=== PATIENT | female | born 1980 | race African-American/Black ===

== ENCOUNTER 2018-07-13 19:05 | Emergency (ER) | payer OTHER ==
[~2018-07-13] VITALS: Ht 157.5 cm; Wt 83.9 kg
[2018-07-13] MEDS ORDERED: Ketorolac 30mg Inj IV ONE (19:45)
--- NOTE | 2018-07-13 19:46 | Emergency Room Report ---
History of Present Illness General Chief Complaint: Flu Like Symptoms Source: Patient, Medical Record Present Illness HPI 37-year-old female patient presents ER complaining of flulike symptoms for the past day. Patient reports that she is been experiencing generalized weakness and fatigue following physical therapy earlier today. Reports history of similar symptoms a week ago that resolved. Reports has not been taking medications. Denies fever, chest pain, shortness of breath. Complains subjective fever and chills while at home. Patient is currently afebrile with mildly elevated temperature. Complaining of diarrhea during this time, denies recent travel. Reports diarrhea is watery, denies blood in stool or diarrhea. denies past medical history. Denies drinking or drug use. Denies , states she has history of tubal ligation. Denies dysuria, hematuria. reports history of costochondritis, complaining of chest discomfort with breathing. Reports present for over a week. 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 Review of Systems All Other Systems: negative except mentioned in HPI Physical Exam Vital Signs Date Time Temp Pulse Resp B/P (MAP) Pulse Ox O2 Delivery O2 Flow Rate FiO2 07/13/18 19:13 99.6 110 18 129/87 95 Room Air 99.7 Sp02 EP Interpretation: reviewed, normal General Appearance: well appearing, no apparent distress, alert, GCS 15, non- toxic Head: normocephalic, atraumatic Eyes: bilateral eye normal inspection, bilateral eye PERRL ENT: hearing grossly normal, normal pharynx, no angioedema, normal voice, uvula midline, moist mucus membranes Neck: full range of motion Respiratory: lungs clear, normal breath sounds, no rhonchi, no respiratory distress, no accessory muscle use, no wheezing, speaking full sentences, other - chest tender to palpation Cardiovascular #1: regular rate, rhythm, no edema Gastrointestinal: non tender, soft, no mass, non-distended, no guarding, no rebound Genitourinary: no CVA tenderness Musculoskeletal: back normal, digits/nails normal, gait/station normal, normal range of motion, non-tender Neurologic: alert, oriented x3, responsive, motor strength/tone normal, sensory intact Psychiatric: mood/affect normal Skin: no rash Lymphatic: no adenopathy Medical Decision Making PA Attestation Dr. Duvall is my supervising Physician whom patient management has been discussed with. Diagnostic Impression: Primary Impression: Dehydration Additional Impression: Diarrhea ER Course Pt. presents to the ED c/o flulike symptoms. Ddx considered but are not limited to sinusitis, viral URI, pharyngitis, gastritis, enteritis, UT, bronchitis, pneumonia, dehydration, anemia, electrolyte abnormality, arrhythmia. Lungs clear to auscultation no wheezes, rhonci or rales. On PE, chest is TTP; chest pain likely musculoskeletal in nature secondary to cough, does not require cardiac workup at this time. No abdominal tenderness to palpation, no rebound or guarding, low suspicion for appendicitis. Vital signs: are WNL, pt. is afebrile ER COURSE: provided with IV fluids, toradol and zofran in the ER. EKG shows ST elevations or arrhythmia, chest x-ray negative for acute disease, low suspicion for UT or pneumonia. Chest symptoms likely due to costochondritis , take Tylenol fro pain symptoms. CBC and CMP unremarkable, elevation WBCs, patient is afebrile, suspicion for bacterial infection. Influenza AB negative UA shows no signs of infection. Urine negative Patient informed of likely viral cause of symptoms. Patient informed symptoms likely due to diarrhea and dehydration from exercise earlier today. Drink plenty of fluids. No fever, no blood in stool, no recent travel or hospitalizations, does not require abx treatment at this time. Patient instructed on BRAT diet. Patient instructed to remain hydrated, drink plenty of fluids. Patient questions asked and answered. Patient states understanding and agreement to treatment plan. Patient reports symptoms improved, afebrile prior to discharge. ER precautions given. Informed patient to return to ER for new or worsening of symptoms. DISCHARGE: Rx provided for Tylenol At this time pt is stable for d/c to home. Patient is resting comfortably, in no acute distress, nontoxic appearing, talking without difficulty. Patient to take medications as instructed Will provide with patient care instructions and any necessary prescriptions. Care plan and follow-up instructions provided. Patient instructed to follow-up with primary care provider in 3 - 5 days. Patient questions asked and answered. Patient reports understanding and agreement to treatment plan. ER precautions given. Patient instructed to return to ER immediately for any new or worsening of symptoms including but not limited to increasing SOB, persistent fever, chest pain, intractable vomiting. - Please note that this Emergency Department Report was dictated using [employer]vocational nurse lvn technology software, occasionally this can lead to erroneous entry secondary to interpretation by the dictation equipment. Labs Test 07/13/18 20:15 07/13/18 21:10 White Blood Count 6.5 K/UL (4.8-10.8) Red Blood Count 4.65 M/UL (4.20-5.40) Hemoglobin 13.4 G/DL (12.0-16.0) Hematocrit 39.4 % (37.0-47.0) Mean Corpuscular Volume 85 FL (80-99) Mean Corpuscular Hemoglobin 28.7 PG (27.0-31.0) Mean Corpuscular Hemoglobin Concent 33.8 G/DL (32.0-36.0) Red Cell Distribution Width 12.6 % (11.6-14.8) Platelet Count 283 K/UL (150-450) Mean Platelet Volume 5.5 FL (6.5-10.1) Neutrophils (%) (Auto) % (45.0-75.0) Lymphocytes (%) (Auto) % (20.0-45.0) Monocytes (%) (Auto) % (1.0-10.0) Eosinophils (%) (Auto) % (0.0-3.0) Basophils (%) (Auto) % (0.0-2.0) Differential Total Cells Counted 100 Neutrophils % (Manual) 85 % (45-75) Lymphocytes % (Manual) 9 % (20-45) Monocytes % (Manual) 4 % (1-10) Eosinophils % (Manual) 0 % (0-3) Basophils % (Manual) 1 % (0-2) Band Neutrophils 1 % (0-8) Platelet Estimate Adequate Platelet Morphology Normal Red Blood Cell Morphology Normal Sodium Level 140 MMOL/L (136-145) Potassium Level 3.7 MMOL/L (3.5-5.1) Chloride Level 103 MMOL/L (98-107) Carbon Dioxide Level 25 MMOL/L (21-32) Anion Gap 12 mmol/L (5-15) Blood Urea Nitrogen 10 mg/dL (7-18) Creatinine 0.8 MG/DL (0.55-1.30) Estimat Glomerular Filtration Rate > 60 mL/min (>60) Glucose Level 127 MG/DL (74-106) Calcium Level 8.7 MG/DL (8.5-10.1) Total Bilirubin 0.4 MG/DL (0.2-1.0) Aspartate Amino Transf (AST/SGOT) 21 U/L (15-37) Alanine Aminotransferase (ALT/SGPT) 18 U/L (12-78) Alkaline Phosphatase 100 U/L (46-116) Total Protein 8.0 G/DL (6.4-8.2) Albumin 3.6 G/DL (3.4-5.0) Globulin 4.4 g/dL Albumin/Globulin Ratio 0.8 (1.0-2.7) Lipase 109 U/L (73-393) Urine Color Yellow Urine Appearance Clear Urine pH 8 (4.5-8.0) Urine Specific Streeter 1.010 (1.005-1.035) Urine Protein Negative (NEGATIVE) Urine Glucose (UA) Negative (NEGATIVE) Urine Ketones Negative (NEGATIVE) Urine Blood 5+ (NEGATIVE) Urine Nitrite Negative (NEGATIVE) Urine Bilirubin Negative (NEGATIVE) Urine Urobilinogen Normal MG/DL (0.0-1.0) Urine Leukocyte Esterase Negative (NEGATIVE) Urine RBC 5-10 /HPF (0 - 2) Urine WBC 2-4 /HPF (0 - 2) Urine Squamous Epithelial Cells Moderate /LPF (NONE/OCC) Urine Bacteria Few /HPF (NONE) Urine HCG, Qualitative Negative (NEGATIVE) EKG Diagnostic Results Rate: normal, tachycardiac, bradycardiac Rhythm: NSR ST Segments: no acute changes ASA given to the pt in ED: No PA Scribe Text Thad Ireland PA-C Rhythm Strip Diag. Results EP Interpretation: yes Rate: 92 Rhythm: NSR, no PVC's, no ectopy PA Scribe Text Thad Ireland PA-C Chest X-Ray Diagnostic Results Chest X-Ray Diagnostic Results : Chest X-Ray Ordered: Yes # of Views/Limited/Complete: 1 View Indication: Chest Pain EP Interpretation: Yes PA Xray: Interpretation reviewed, by supervising MD, and agrees with findings. Interpretation: no consolidation, no effusion, no pneumothorax, no acute cardiopulmonary disease Impression: No acute disease PA Scribe Text Thad Ireland PA-C Last Vital Signs Date Time Temp Pulse Resp B/P (MAP) Pulse Ox O2 Delivery O2 Flow Rate FiO2 07/13/18 19:13 99.6 110 18 129/87 95 Room Air 99.7 Status: improved Disposition: HOME, SELF-CARE Condition: Stable Scripts Acetaminophen* (TYLENOL EXTRA STRENGTH*) 500 Mg Tablet 500 MG ORAL Q8H PRN for Prn Headache/Temp > 101, #30 TAB 0 Refills Prov: Timmy Ireland 07/13/18 Patient Instructions: Costochondritis, [id number], Dehydration, Adult, Easy- to-Read, Diarrhea, Adult, Food Choices to Help Relieve Diarrhea, Adult, Influenza, Adult, [id number] Additional Instructions: Followup with primary care provider in 3 -5 days. BRAT diet: bananas, rice, apple sauce, toast. Drink plenty of fluids. Consider Imodium for diarrhea and Tylenol for pain symptoms. Take medications as directed. Patient questions asked and answered. ER precautions given, patient instructed to return to ER immediately for any new or worsening of symptoms. Timmy Ireland Jul 13, 2018 19:46
[2018-07-13 20:29] LABS: HEMATOCRIT 39.4 % (37.0-47.0); HEMOGLOBIN 13.4 G/DL (12.0-16.0); MEAN CORPUSCULAR VOLUME 85 FL (80-99); PLATELET COUNT 283 K/UL (150-450); RED BLOOD COUNT 4.65 M/UL (4.20-5.40); RED CELL DISTRIBUTION WIDTH 12.6 % (11.6-14.8); WHITE BLOOD COUNT 6.5 K/UL (4.8-10.8)
[2018-07-13 20:39] LABS: ANION GAP 12 mmol/L (5-15); BLOOD UREA NITROGEN 10 mg/dL (7-18); CALCIUM 8.7 MG/DL (8.5-10.1); CARBON DIOXIDE 25 MMOL/L (21-32); CHLORIDE 103 MMOL/L (98-107); CREATININE 0.8 MG/DL (0.55-1.30); POTASSIUM 3.7 MMOL/L (3.5-5.1); SODIUM 140 MMOL/L (136-145)
[2018-07-13 20:45] VITALS: BP 129/87
[2018-07-13 20:46] LABS: ALANINE AMINOTRANSFERASE 18 U/L (12-78); ALBUMIN 3.6 G/DL (3.4-5.0); ALBUMIN/GLOBULIN RATIO 0.8 (1.0-2.7); ALKALINE PHOSPHATASE 100 U/L (46-116); ASPARTATE AMINO TRANSFERASE 21 U/L (15-37); BILIRUBIN,TOTAL 0.4 MG/DL (0.2-1.0)
[2018-07-13 21:17] LABS: APPEARANCE,URINE CLEAR; BILIRUBIN, URINE NEGATIVE (NEGATIVE); GLUCOSE, URINE (UA) NEGATIVE (NEGATIVE); KETONES,URINE NEGATIVE (NEGATIVE); LEUKOCYTE ESTERASE ,URINE NEGATIVE (NEGATIVE); NITRITE,URINE NEGATIVE (NEGATIVE); PH,URINE 8 (4.5-8.0); PROTEIN,URINE NEGATIVE (NEGATIVE); UROBILINOGEN,URINE NORMAL MG/DL (0.0-1.0)
[2018-07-13 21:21] LABS: COLOR,URINE YELLOW
[2018-07-13] MEDS ORDERED: TYLENOL EXTRA500 MG ORAL (22:00)
[2018-07-13 22:18] VITALS: BP 127/84
--- NOTE | 2018-07-14 13:23 | Cardiology Report ---
APPROVED REPORT EKG Measurement Heart [id number] Normal sinus rhythm Normal ECG
--- NOTE | 2018-07-14 13:39 | Diagnostic Imaging Report ---
Indication: Dyspnea Comparison: None A single view chest radiograph was obtained. Findings: Cardiomediastinal appearance is within normal limits for age. The lungs are clear. Pulmonary vascularity is appropriate. The diaphragmatic contour is smooth and costophrenic angles are sharp. No pleural effusions are identified. The bones are unremarkable. Impression: No acute findings
== END 2018-07-13 22:18 | disposition home or self-care (01) ==
LOC: EMR 19:45
DX: E86.0 Dehydration (principal); R19.7 Diarrhea, unspecified
CPT/HCPCS: 36415; 71045; 80053; 81003; 81025; 83690; 85007; 85025; 86710; 93005; 96361; 96374; 96375; 99284; J1885; J2405